=== PATIENT | male | born 1935 | race Caucasian/White ===

== ENCOUNTER 2021-03-10 11:34 | Emergency (ER) | payer MEDICARE ==
[~2021-03-10 11:34] MED LIST: ACETAMINOPHEN325 MG PO; ALLOPURINOL100 MG PO; APRESOLINE100 MG PO; CARDIZEM CD180 MG PO; CARISOPRODOL350 MG PO; FLONASE ALLER15.8 ML; GEMFIBROZIL600 MG PO; GLIPIZIDE5 MG PO; ILOTYCIN1 GM OU; K-DUR20 MEQ PO; LASIX40 MG PO; LOVAZA1 GM PO; LYRICA150 MG PO; NIACIN ER500 MG PO; NORVASC5 MG PO; OCUFLOX5 ML EYEBOTH; OFLOXACIN5 M1 AU; PRINIVIL20 MG PO; TAMSULOSIN HCL0.4 MG PO; VICODIN 10/3251 EACH PO; XARELTO15 MG PO; ZAROXOLYN2.5 MG PO; ZYLET EYE DROPS10 ML EYEBOTH; ZYRTEC10 M2 PO; [UNRECOGNIZED DRUG - OTHER] INH
[2021-03-10] MEDS ORDERED: CEPHALEXIN500 MG PO (14:34)
== END 2021-03-10 16:00 | disposition home or self-care (01) ==
LOC: FER 11:34
DX: S92.511A Displaced fracture of proximal phalanx of right lesser toe(s), initial encounter for closed fracture (principal); S91.114A Laceration without foreign body of right lesser toe(s) without damage to nail, initial encounter; I10 Essential (primary) hypertension; E11.9 Type 2 diabetes mellitus without complications; W22.8XXA Striking against or struck by other objects, initial encounter; Y92.009 Unspecified place in unspecified non-institutional (private) residence as the place of occurrence of the external cause
CPT/HCPCS: 73630

== ENCOUNTER 2022-01-16 11:02 | Inpatient (IN) | payer MEDICARE ==
[~2022-01-16] VITALS: Ht 188 cm; Wt 95.7 kg
[~2022-01-16 11:02] MED LIST changes: +CEPHALEXIN500 MG PO
[2022-01-16 12:00] LABS: BASOPHIL 0.2 % (0-2); EOSINOPHIL 0 % (0-7); HCT 47.6 % (42.0-52.0); MCH 29.1 pg (25.0-31.0); MCHC 33.6 g/dL (32.0-36.0); MCV 86.5 fL (78.0-100.0); MONOCYTE 8.8 % (0-12); MPV 11.2 fL (6.0-9.5); NEUTROPHIL 79.3 % (41-80); NRBC 0; PLT 307 K/uL (150-400); RDW 15.4 % (11.5-14.0); WBC 10.4 K/uL (4.0-10.5)
[2022-01-16 12:20] LABS: CKMB 2.2 ng/mL (0.0-3.6)
[2022-01-16 14:05] LABS: INFLUENZA A NAA NEGATIVE (NEGATIVE)
[2022-01-16 14:17] LABS: CORONAVIRUS 2019 SARS-COV-2 POSITIVE (NEGATIVE)
[2022-01-16 15:17] LABS: ALBUMIN 2.8 g/dL (3.4-5.0); BILIRUBIN - TOTAL 2.2 mg/dL (0.2-1.0); BUN/CREAT RATIO (CALC) 35.1 RATIO; CREATININE 1.31 mg/dL (0.67-1.17); GLOBULIN (CALCULATION) 5.5 g/dL; POTASSIUM 4.2 mmol/L (3.5-5.1); TOTAL PROTEIN 8.3 g/dL (6.4-8.2)
--- NOTE | 2022-01-16 17:34 | NUR ---
RECEIVED FROM ER VIA STRETCHER, ORIENTED TO ROOM AND UNIT, PATIENT IS CONFUSED
[2022-01-16] MEDS ORDERED: ALLOPURINOL100 MG PO (17:47)
[2022-01-16] MEDS ORDERED: AMLODIPINE BESY10 MG PO (17:50)
[2022-01-16] MEDS ORDERED: BACLOFEN 10MG T10 MG PO (17:51)
[2022-01-16] MEDS ORDERED: CARDIZEM CD180 MG PO (17:52)
[2022-01-16] MEDS ORDERED: ZYRTEC10 M3 PO (17:52)
[2022-01-16] MEDS ORDERED: LOVAZA1 GM PO (17:53)
[2022-01-16] MEDS ORDERED: FEOSOL325 MG PO (17:53)
[2022-01-16] MEDS ORDERED: PROSCAR5 MG PO (17:53)
[2022-01-16] MEDS ORDERED: FLONASE ALLER15.8 ML (17:54)
[2022-01-16] MEDS ORDERED: LASIX40 MG PO (17:55)
[2022-01-16] MEDS ORDERED: LOPID600 MG PO (17:55)
[2022-01-16] MEDS ORDERED: APRESOLINE100 MG PO (17:55)
[2022-01-16] MEDS ORDERED: LYRICA 50MG CAP50 MG PO (17:56)
[2022-01-16] MEDS ORDERED: VICODIN 10/3251 EACH PO (17:56)
[2022-01-16] MEDS ORDERED: METOLAZONE 5MG T5 M1 PO (17:58)
[2022-01-16] MEDS ORDERED: LOPRESSOR25 MG PO (17:58)
[2022-01-16] MEDS ORDERED: NIACIN500 M1 PO (17:59)
[2022-01-16] MEDS ORDERED: POTASSIUM CHLO20 ME1 PO (18:02)
[2022-01-16] MEDS ORDERED: PROVENTIL HFA6.7 GM INH (18:03)
[2022-01-16] MEDS ORDERED: SEROQUEL 25MG T25 MG PO (18:04)
[2022-01-16] MEDS ORDERED: FLOMAX0.4 MG PO (18:04)
[2022-01-16] MEDS ORDERED: RESTASIS MULTI5.5 ML OP (18:06)
[2022-01-16] MEDS ORDERED: XARELTO15 MG PO (18:06)
[2022-01-16 18:47] LABS: BILIRUBIN 1+ mg/dL (NEGATIVE); BLOOD 2+ Ery/uL (NEGATIVE); CLARITY CLEAR (CLEAR); COLOR YELLOW (YELLOW); GLUCOSE (U) NORMAL (NORMAL); LEUKOCYTES NEGATIVE Leu/uL (NEGATIVE); NITRITE NEGATIVE (NEGATIVE); PROTEIN 3+ mg/dL (NEGATIVE); SPECIFIC GRAVITY 1.025 (1.001-1.030)
[2022-01-17 02:52] LABS: BASOPHIL 0.2 % (0-2); EOSINOPHIL 0 % (0-7); HCT 43.6 % (42.0-52.0); HGB 14.6 g/dl (13.2-18.0); LYMPHOCYTE 12.2 % (15-48); MCH 28.8 pg (25.0-31.0); MCHC 33.5 g/dL (32.0-36.0); MPV 10.6 fL (6.0-9.5); NEUTROPHIL 83.9 % (41-80); NRBC 0; PLT 229 K/uL (150-400); RBC 5.07 M/uL (4.70-6.00); RDW 15.1 % (11.5-14.0); WBC 4.4 K/uL (4.0-10.5)
[2022-01-17 03:11] LABS: IRON % SATURATION 27.9 %SAT (20-50)
[2022-01-17 03:37] LABS: ALBUMIN 2.5 g/dL (3.4-5.0); BILIRUBIN - TOTAL 2.7 mg/dL (0.2-1.0); BUN/CREAT RATIO (CALC) 33.8 RATIO; C-REACTIVE PROTEIN 6.7 mg/dL (<=0.90); CREATININE 1.33 mg/dL (0.67-1.17); GLOBULIN (CALCULATION) 4.4 g/dL; MAGNESIUM 1.8 mg/dL (1.8-2.4); PHOSPHORUS 4.7 mg/dL (2.6-4.7); TOTAL PROTEIN 6.9 g/dL (6.4-8.2)
--- NOTE | 2022-01-17 09:04 | NUR ---
AT 0115 PT AGITATED AND IRRITABLE, PICKING AT SKIN, REACHING FOR THINGS NOT THERE, TRYING TO CLIMB OUT OF BED AND PULL IV OUT, YELLING AND CURSING, FIDGETY, PT HR 120-170 NOTIFIED JESICA GOODMAN ORDERED EKG UNABLE TO OBTAIN BECAUSE PT AGITATION AND MOVEMENT. JESICA GOODMAN ORDERED AND GIVEN CARDIZEM 10 MG IVP HR 170, 0145 SOFT RESTRAINTS PLACED SUSANNE WRIST AND ANKLES, 0144 HR 173 CARDIZEM 10MG GIVEN IVP, PT YELLING AND CURSING, PULLING AT STAFF , UNABLE TO GIVE MEDICATION STAFF HAVING TO HOLD PT IN ORDER TO CARE FOR HIM. PT PUSHING STAFF AND YELLING 0155 HALDOL GIVEN ORDERED IM, PT STILL AGITATED AND YELLING, EXTREMELY RESTLESS- 0245 GEODON GIVEN IM ORDERED. 0245 RESTRAINTS REMOVED. PT HAS SITTER IN ROOM, 0250 BLOOD PRESSURE 137/34 HR 109 0400 PT SLEEPING IN BED RESP EVEN AND UNLABORED B/P115//87 HR 97
--- NOTE | 2022-01-17 10:09 | NUR ---
01/17/22 Mr. Guillen has a dx of dementia. An assessment was conducted with Ms. Guillen via telephone. Mr. Gong is followed by [facility]. [facility] was informed of admission. Mr. Guillen has a scooter and s. chair. Ms. Guillen reports that Mr. Guillen is have increasingly more difficulty transferring from a chair to the scooter. - Mr. Guillen has 3 children and one step son. According to Ms. Guillen, one of his son's will help with home repairs. Otherwise they do not have family support. - Ms. Guillen plans on Mr. Guillen returning home. - [facility] Waiver program. - [facility] and / Hom[facility] services.
[2022-01-18 06:12] LABS: BASOPHIL 0.2 % (0-2); EOSINOPHIL 0 % (0-7); HCT 49.1 % (42.0-52.0); HGB 16.4 g/dl (13.2-18.0); LYMPHOCYTE 6.9 % (15-48); MCH 28.8 pg (25.0-31.0); MCHC 33.4 g/dL (32.0-36.0); MCV 86.1 fL (78.0-100.0); MONOCYTE 5.8 % (0-12); NEUTROPHIL 86.4 % (41-80); NRBC 0; PLT 315 K/uL (150-400); RDW 14.8 % (11.5-14.0)
[2022-01-18 06:26] LABS: WBC 8.8 K/uL (4.0-10.5)
[2022-01-18 07:40] LABS: BUN/CREAT RATIO (CALC) 37.7 RATIO; CREATININE 1.38 mg/dL (0.67-1.17); MAGNESIUM 1.8 mg/dL (1.8-2.4); PHOSPHORUS 4.3 mg/dL (2.6-4.7); POTASSIUM 3.7 mmol/L (3.5-5.1)
--- NOTE | 2022-01-18 13:22 | NUR ---
01/18/22 Ms. Guillen is considering SNF placement. She prefers to take Mr. Guillen home. However, she states she would not be able to manage his care at this point. Mr. Guillen is not stable to start Therapy evaluations. It was agreed upon that additional conversation will take place after Mr. Guillen is able to participate in therapy.
[2022-01-19 08:08] LABS: BUN/CREAT RATIO (CALC) 40.9 RATIO; C-REACTIVE PROTEIN 2.4 mg/dL (<=0.90); CREATININE 1.71 mg/dL (0.67-1.17); MAGNESIUM 1.8 mg/dL (1.8-2.4); POTASSIUM 3.3 mmol/L (3.5-5.1)
[2022-01-19 08:20] LABS: BASOPHIL 0.2 % (0-2); EOSINOPHIL 0 % (0-7); HCT 51.6 % (42.0-52.0); HGB 17.4 g/dl (13.2-18.0); LYMPHOCYTE 5.7 % (15-48); MCH 28.7 pg (25.0-31.0); MCHC 33.7 g/dL (32.0-36.0); MONOCYTE 7.4 % (0-12); NEUTROPHIL 85.7 % (41-80); NRBC 0; PLT 410 K/uL (150-400); RBC 6.07 M/uL (4.70-6.00); RDW 15.5 % (11.5-14.0); WBC 13.4 K/uL (4.0-10.5)
[2022-01-20 06:11] LABS: BASOPHIL 0.3 % (0-2); EOSINOPHIL 0 % (0-7); HCT 55.1 % (42.0-52.0); HGB 18.4 g/dl (13.2-18.0); LYMPHOCYTE 6.7 % (15-48); MCH 28.8 pg (25.0-31.0); MCHC 33.4 g/dL (32.0-36.0); MCV 86.4 fL (78.0-100.0); MONOCYTE 7.6 % (0-12); MPV 10.7 fL (6.0-9.5); NEUTROPHIL 84.7 % (41-80); NRBC 0; PLT 348 K/uL (150-400); RBC 6.38 M/uL (4.70-6.00); RDW 16.4 % (11.5-14.0); WBC 16.2 K/uL (4.0-10.5)
[2022-01-20 06:39] LABS: BUN/CREAT RATIO (CALC) 41.4 RATIO; C-REACTIVE PROTEIN 1.6 mg/dL (<=0.90); CREATININE 1.91 mg/dL (0.67-1.17); MAGNESIUM 1.8 mg/dL (1.8-2.4); PHOSPHORUS 5.1 mg/dL (2.6-4.7); POTASSIUM 3.5 mmol/L (3.5-5.1)
[2022-01-21 06:50] LABS: BASOPHIL 0.3 % (0-2); EOSINOPHIL 0 % (0-7); HCT 55.7 % (42.0-52.0); HGB 18.6 g/dl (13.2-18.0); LYMPHOCYTE 3.4 % (15-48); MCHC 33.4 g/dL (32.0-36.0); MCV 86.8 fL (78.0-100.0); MONOCYTE 8.1 % (0-12); MPV 11.7 fL (6.0-9.5); NEUTROPHIL 86.9 % (41-80); NRBC 0.2; PLT 316 K/uL (150-400); RBC 6.42 M/uL (4.70-6.00); WBC 25.9 K/uL (4.0-10.5)
[2022-01-21 07:30] LABS: ALBUMIN 2.7 g/dL (3.4-5.0); CREATININE 2.27 mg/dL (0.67-1.17); GLOBULIN (CALCULATION) 4.7 g/dL; MAGNESIUM 2.1 mg/dL (1.8-2.4); PHOSPHORUS 3.9 mg/dL (2.6-4.7); TOTAL PROTEIN 7.4 g/dL (6.4-8.2)
[2022-01-21 07:35] LABS: BILIRUBIN - TOTAL 4.9 mg/dL (0.2-1.0)
--- NOTE | 2022-01-21 21:05 | NUR ---
[place] [address]/21/22, PRONOUNCED BY ISRAEL MARTINEZ APRN, WIFED ATILIO AVALOS AT BEDSIDE. PT BATHED,IV AND CALVERT REMOVED. JOHANNA NOTIFIED SANDRA EVY-REF# [id number] PT NOT A CANDIDATE. HOME CALLED [facility]. CHECKLIST COMPLETE AND PROVISIONAL REPORT OF COMPLETED. CORNELL GOMEZ RN NOTIFIED.
--- NOTE | 2022-01-23 10:57 | NUR ---
Mr. Guillen dies 01/21/22.
== END 2022-01-21 21:45 | disposition expired | DRG 871 ==
LOC: FER 11:02 → FTCU 15:59
PROVIDERS: Emergency Medicine; Internal Medicine; Internal Medicine Cardiovascular Disease; ADMIT Internal Medicine
PROC: 3E03329 Introduction of Other Anti-infective into Peripheral Vein, Percutaneous Approach (ICD-10-PCS; principal; 2022-01-16)
PROC: 3E0333Z Introduction of Anti-inflammatory into Peripheral Vein, Percutaneous Approach (ICD-10-PCS; 2022-01-16)
PROC: B24BZZZ Ultrasonography of Heart with Aorta (ICD-10-PCS; 2022-01-18)
PROC: 8E0ZXY6 Isolation (ICD-10-PCS; 2022-01-18)
DX: A41.89 Other specified sepsis (principal); G93.41 Metabolic encephalopathy; U07.1 COVID-19; J12.82 Pneumonia due to coronavirus disease 2019; J15.9 Unspecified bacterial pneumonia; I50.33 Acute on chronic diastolic (congestive) heart failure; E87.2 Acidosis; I48.20 Chronic atrial fibrillation, unspecified; I13.0 Hypertensive heart and chronic kidney disease with heart failure and stage 1 through stage 4 chronic kidney disease, or unspecified chronic kidney disease; I48.92 Unspecified atrial flutter; N17.9 Acute kidney failure, unspecified; R65.20 Severe sepsis without septic shock; Z66 Do not resuscitate; E86.0 Dehydration; E11.22 Type 2 diabetes mellitus with diabetic chronic kidney disease; N18.30 Chronic kidney disease, stage 3 unspecified; D63.1 Anemia in chronic kidney disease; F03.90 Unspecified dementia, unspecified severity, without behavioral disturbance, psychotic disturbance, mood disturbance, and anxiety; J84.10 Pulmonary fibrosis, unspecified; R63.4 Abnormal weight loss; Z90.49 Acquired absence of other specified parts of digestive tract; Z88.5 Allergy status to narcotic agent; Z83.3 Family history of diabetes mellitus; Z82.49 Family history of ischemic heart disease and other diseases of the circulatory system; Z79.01 Long term (current) use of anticoagulants; Z79.899 Other long term (current) drug therapy; Z85.048 Personal history of other malignant neoplasm of rectum, rectosigmoid junction, and anus; Z68.26 Body mass index [BMI] 26.0-26.9, adult
CPT/HCPCS: 36415; 36600; 70450; 71045; 80048; 80053; 81001; 82553; 82607; 82803; 82962; 83036; 83540; 83550; 83605; 83735; 83880; 84100; 84145; 84484; 85025; 86140; 87449; 93005; 94640; J0282; J0456; J0696; J1100; J1160; J1170; J1630; J1885; J2543; J3360; J3486; J7030; J7050; J7060; J7120; U0002